=== PATIENT | female | born 1965 | race African-American/Black ===

== ENCOUNTER 2017-12-21 13:43 | Inpatient (IN) | payer OTHER, MEDICAID ==
[~2017-12-21] VITALS: Ht 152.4 cm; Wt 119.3 kg
[2017-12-21 14:12] LABS: BASOPHILS % 0.8 % (0.0-2.0); EOSINOPHILS % 2.8 % (0.0-5.0); HEMATOCRIT. 44.9 % (36.0-48.0); HEMOGLOBIN. 15.2 g/dL (12.0-16.0); LYMPHOCYTES % 34.2 % (20.0-50.0); MEAN CORPUSCULAR HEMOGLOBIN 30.7 pg (28.0-32.0); MEAN CORPUSCULAR VOLUME 90.5 fL (81.0-99.0); MEAN PLATELET VOLUME 7.2 fl (7.4-10.4); MONOCYTES % 8.8 % (2.0-8.0); NEUTROPHILS % 53.4 % (40.0-76.0); PLATELET 402 x1000/uL (130-400); RED BLOOD CELL COUNT 4.96 mill/uL (4.2-5.4); RED CELL DISTRIBUTION WIDTH 13.4 % (11.6-14.6)
[2017-12-21 14:15] LABS: CHLORIDE 106 mEq/L (98-107)
[2017-12-21 14:16] LABS: PROTHROMBIN TIME 10.5 sec (9.4-11.6)
[2017-12-21] MEDS ORDERED: ONDANSETRON HCL 4MG/2ML VIAL IV STA (14:38)
[2017-12-21] MEDS ORDERED: ASPIRIN 81MG TABLET PO STA (14:38)
[2017-12-21] MEDS ORDERED: IPRATROPIUM/ALBUTEROL 0.5-3(2.5)MG/3ML NEB INH PRN (18:30)
[2017-12-21] MEDS ORDERED: DIPHENHYDRAMINE 50MG/ML VIAL IV PRN (18:30)
[2017-12-21] MEDS ORDERED: MAGNESIUM/ALUMINUM HYDROXIDE/SIMETHICONE 30ML UDC PO PRN (18:30)
[2017-12-21] MEDS ORDERED: ENOXAPARIN 40MG/0.4ML SYR SUBCUT SCH (18:30)
[2017-12-21] MEDS ORDERED: ACETAMINOPHEN 325MG TABLET PO PRN (18:30)
[2017-12-21] MEDS ORDERED: MAGNESIUM HYDROXIDE 400MG/5ML 30ML UDC PO PRN (18:30)
[2017-12-21] MEDS ORDERED: CLONIDINE 0.1MG TABLET PO PRN (18:30)
[2017-12-21] MEDS ORDERED: ZOLPIDEM TARTRATE 5MG TABLET PO PRN (18:30)
[2017-12-21] MEDS ORDERED: ONDANSETRON HCL 4MG/2ML VIAL IV PRN (18:30)
[2017-12-21 19:41] LABS: *AMPHETAMINES SCREEN URINE NEGATIVE (NEGATIVE); *BARBITURATES SCREEN URINE NEGATIVE (NEGATIVE); *BENZODIAZEPINES SCREEN URINE NEGATIVE (NEGATIVE); *COCAINE SCREEN URINE NEGATIVE (NEGATIVE); METHADONE URINE SCREEN NEGATIVE (NEGATIVE); OPIATES URINE SCREEN NEGATIVE (NEGATIVE)
[2017-12-21 19:42] LABS: CANNABINOID URINE SCREEN NEGATIVE (NEGATIVE); PHENCYCLIDINE URINE SCREEN NEGATIVE (NEGATIVE)
[2017-12-21] MEDS: SODIUM CHLORIDE 0.9% INJ 3ML FLUSH IVF SCH (22:00)
[2017-12-21 22:15] VITALS: BP 153/90
[2017-12-21 22:18] VITALS: BP 158/95
[2017-12-21] MEDS ORDERED: REGADENOSON 0.4 MG/5 ML IV NR (22:30)
[2017-12-21] MEDS ORDERED: DILT240C3 PO (23:12)
[2017-12-21] MEDS ORDERED: ASPI-1159 PO (23:13)
[2017-12-21] MEDS ORDERED: CHOL500010 PO (23:14)
[2017-12-21] MEDS ORDERED: LORA1TAB PO (23:15)
[2017-12-21] MEDS ORDERED: OXYB5TAB11 PO (23:15)
[2017-12-21] MEDS ORDERED: TEMA15CA PO (23:16)
[2017-12-22] VITALS: BP 136/75
[2017-12-22 04:00] VITALS: BP 120/77
[2017-12-22] MEDS: OXYBUTYNIN CHLORIDE 5MG TABLET PO SCH ×2 (06:00→15:22)
[2017-12-22] MEDS: SODIUM CHLORIDE 0.9% INJ 3ML FLUSH IVF SCH ×2 (06:40→14:00)
[2017-12-22 07:40] VITALS: BP 129/81
[2017-12-22 08:06] LABS: HDL CHOLESTEROL 58 mg/dL (40-59); LDL CHOLESTEROL 88 mg/dL (5-100)
[2017-12-22] MEDS ORDERED: ASPIRIN 81MG EC TABLET PO SCH (09:00)
[2017-12-22] MEDS ORDERED: ENOXAPARIN 40MG/0.4ML SYR SUBCUT SCH (09:00)
[2017-12-22] MEDS ORDERED: DILTIAZEM HCL 300MG CAPSULE SR 24HR PO SCH (09:00)
[2017-12-22] MEDS ORDERED: POTASSIUM CHLORIDE 20MEQ TABLET SR PO ONE (10:45)
[2017-12-22] MEDS ORDERED: POTASSIUM CHLORIDE 20MEQ TABLET SR PO NR (10:45)
[2017-12-22 12:05] VITALS: BP 146/89
[2017-12-22 15:52] VITALS: BP 138/88
[2017-12-22 17:44] VITALS: BP 138/88
== END 2017-12-22 18:53 | disposition home or self-care (01) | DRG 313 ==
LOC: ER 15:00 → 5WST 20:33 → ENRESERV 20:58 → 5WST 12-22 01:24
PROVIDERS: ADMIT Internal Medicine; ATTEND Internal Medicine
DX: R07.89 Other chest pain (principal); E66.01 Morbid (severe) obesity due to excess calories; I11.9 Hypertensive heart disease without heart failure; Z68.43 Body mass index [BMI] 50.0-59.9, adult; G47.30 Sleep apnea, unspecified; Z83.3 Family history of diabetes mellitus; Z87.440 Personal history of urinary (tract) infections; Z79.899 Other long term (current) drug therapy; Z90.49 Acquired absence of other specified parts of digestive tract; Z79.82 Long term (current) use of aspirin
CPT/HCPCS: 36415; 71045; 78452; 80053; 80061; 80305; 83880; 84443; 84484; 85025; 85379; 85610; 93005; 93017; 93970; 99285; A9500; J1650

== ENCOUNTER 2020-11-11 11:00 | Emergency (ER) | payer MEDICAID, OTHER ==
[~2020-11-11] VITALS: Ht 152.4 cm; Wt 84.0 kg
[~2020-11-11 11:00] MED LIST: ASPI-1497 PO; CHOL500010 PO; DILT240C94 PO; LORA1TAB PO; OXYB5TAB16 PO; TEMA15CA PO
[2020-11-11 11:43] LABS: CLARITY URINE CLOUDY (CLEAR); COLOR URINE YELLOW (YELLOW); KETONES URINE TRACE (NEGATIVE); LEUKOCYTE ESTERASE URINE 3+ (NEGATIVE); NITRITE URINE NEGATIVE (NEGATIVE); OCCULT BLOOD URINE NEGATIVE (NEGATIVE); PH URINE 7.5 (4.5-8.0); PROTEIN URINE TRACE (NEGATIVE); SPECIFIC GRAVITY URINE 1.023 (1.005-1.030)
[2020-11-11 11:43] LABS: EOSINOPHILS % 2.7 % (0.0-5.0); HEMATOCRIT. 33.2 % (36.0-48.0); HEMOGLOBIN. 10.7 g/dL (12.0-16.0); LYMPHOCYTES % 34.5 % (20.0-50.0); MEAN CORPUSCULAR HEMOGLOBIN 25.8 pg (28.0-32.0); MEAN CORPUSCULAR VOLUME 79.8 fL (81.0-99.0); MEAN PLATELET VOLUME 7.1 fl (7.4-10.4); MONOCYTES % 13.2 % (2.0-8.0); NEUTROPHILS % 48.6 % (40.0-76.0); PLATELET 419 x1000/uL (130-400); RED BLOOD CELL COUNT 4.17 mill/uL (4.2-5.4); RED CELL DISTRIBUTION WIDTH 16.1 % (11.6-14.6)
[2020-11-11 11:56] LABS: CHLORIDE 109 mEq/L (98-107)
[2020-11-11] MEDS ORDERED: NITR-87 MT ×2 (13:44)
[2020-11-11] MEDS ORDERED: SULF1TAB48 MT (13:53)
[2020-11-11] MEDS ORDERED: IOHEXOL-300 100 ML BOTTLE ONE (14:29)
[2020-11-11 14:31] VITALS: BP 128/70
== END 2020-11-11 14:32 | disposition home or self-care (01) ==
LOC: ER 11:11
DX: N30.90 Cystitis, unspecified without hematuria (principal); I10 Essential (primary) hypertension; Z79.82 Long term (current) use of aspirin; Z79.899 Other long term (current) drug therapy; Z90.49 Acquired absence of other specified parts of digestive tract; Z98.890 Other specified postprocedural states
CPT/HCPCS: 36415; 74177; 80053; 81003; 83690; 85025; 93005; 99285; Q9967; Z7610

== ENCOUNTER 2022-07-26 10:19 | Inpatient (IN) | payer OTHER ==
[~2022-07-26] VITALS: Ht 152.4 cm; Wt 92.1 kg
[~2022-07-26 10:19] MED LIST changes: +SULF1TAB48 MT
[2022-07-26 13:01] LABS: CHLORIDE 108 mEq/L (98-107)
[2022-07-26 13:02] LABS: BASOPHILS % 0.4 % (0.0-2.0); EOSINOPHILS % 1.4 % (0.0-5.0); HEMATOCRIT. 35.5 % (36.0-48.0); HEMOGLOBIN. 10.8 g/dL (12.0-16.0); LYMPHOCYTES % 18.1 % (20.0-50.0); MEAN CORPUSCULAR HEMOGLOBIN 22.3 pg (28.0-32.0); MEAN CORPUSCULAR VOLUME 73.6 fL (81.0-99.0); MEAN PLATELET VOLUME 7.3 fl (7.4-10.4); MONOCYTES % 6.8 % (2.0-8.0); NEUTROPHILS % 73.3 % (40.0-76.0); PLATELET 451 x1000/uL (130-400); RED BLOOD CELL COUNT 4.83 mill/uL (4.2-5.4); RED CELL DISTRIBUTION WIDTH 20.5 % (11.6-14.6)
[2022-07-26] MEDS ORDERED: ASPIRIN 81MG TABLET PO ONE (15:45)
[2022-07-26] MEDS ORDERED: NITROGLYCERIN 0.4MG TABLET SL SL PRN ×2 (15:45→18:30)
[2022-07-26 16:40] LABS: D-DIMER 0.49 mg/L FEU (<0.50); INR 0.9; PARTIAL THROMBOPLASTIN TIME 24.8 sec (23.4-31.0); PROTHROMBIN TIME 10.2 sec (9.6-11.0)
[2022-07-26] MEDS ORDERED: GUAIFENESIN 200MG/10ML SUGAR FREE UDC PO PRN (18:30)
[2022-07-26] MEDS ORDERED: IPRATROPIUM/ALBUTEROL 0.5-3(2.5)MG/3ML NEB NEB PRN (18:30)
[2022-07-26] MEDS ORDERED: ZOLPIDEM TARTRATE 5MG TABLET PO PRN (18:30)
[2022-07-26] MEDS ORDERED: DOCUSATE SODIUM 100MG CAPSULE PO PRN (18:30)
[2022-07-26] MEDS ORDERED: CLONIDINE 0.1MG TABLET PO PRN (18:30)
[2022-07-26] MEDS ORDERED: MAGNESIUM/ALUMINUM HYDROXIDE/SIMETHICONE 30ML UDC PO PRN (18:30)
[2022-07-26] MEDS ORDERED: ACETAMINOPHEN 325MG TABLET PO PRN ×2 (18:30)
[2022-07-26] MEDS ORDERED: KETOROLAC 15MG/ML VIAL IV PRN (18:30)
[2022-07-26] MEDS ORDERED: ONDANSETRON HCL 4MG/2ML INJ IV PRN (18:30)
[2022-07-26 19:36] LABS: VITAMIN B12 SERUM 532 pg/mL (211-911)
[2022-07-26] MEDS ORDERED: ENOXAPARIN 30MG/0.3ML SYR SUBCUT SCH (21:00)
[2022-07-26] MEDS: FAMOTIDINE 20MG TABLET PO SCH (21:44)
[2022-07-26 23:20] VITALS: BP 131/84
[2022-07-27] VITALS: BP 131/84
[2022-07-27] MEDS ORDERED: DILT300T10 MT (00:17)
[2022-07-27 04:00] VITALS: BP 118/56
[2022-07-27 07:21] LABS: BASOPHILS % 0.5 % (0.0-2.0); EOSINOPHILS % 1.5 % (0.0-5.0); HEMATOCRIT. 27.5 % (36.0-48.0); HEMOGLOBIN. 8.8 g/dL (12.0-16.0); MEAN CORPUSCULAR HEMOGLOBIN 22.5 pg (28.0-32.0); MEAN CORPUSCULAR VOLUME 70.1 fL (81.0-99.0); MEAN PLATELET VOLUME 7.2 fl (7.4-10.4); MONOCYTES % 12.8 % (2.0-8.0); NEUTROPHILS % 57.2 % (40.0-76.0); PLATELET 428 x1000/uL (130-400); RED BLOOD CELL COUNT 3.93 mill/uL (4.2-5.4); RED CELL DISTRIBUTION WIDTH 20.4 % (11.6-14.6)
[2022-07-27] MEDS ORDERED: GEMTESA PO (07:52)
[2022-07-27 08:00] VITALS: BP 113/62
[2022-07-27] MEDS ORDERED: AMLODIPINE 10MG TABLET PO SCH (09:00)
[2022-07-27] MEDS ORDERED: ASPIRIN 325MG EC TABLET PO SCH (09:00)
[2022-07-27] MEDS: FAMOTIDINE 20MG TABLET PO SCH ×2 (09:32→20:32)
[2022-07-27 09:35] LABS: CREATINE KINASE 61 IU/L (26-192); CREATINE KINASE MB FRACTION < 1.0 ng/mL (0.5-3.6)
[2022-07-27 10:19] LABS: CHLORIDE 105 mEq/L (98-107)
[2022-07-27 11:04] LABS: PHOSPHORUS 3.5 mg/dL (2.5-4.9)
[2022-07-27] MEDS: DILTIAZEM HCL 300MG CAPSULE SR 24HR PO SCH (11:06)
[2022-07-27] MEDS ORDERED: METOPROLOL TARTRATE 5MG/5ML VIAL IV PRN (11:45)
[2022-07-27] MEDS: ASPIRIN 81MG TABLET PO SCH (11:50)
[2022-07-27 12:00] VITALS: BP 158/86
[2022-07-27 16:00] VITALS: BP 136/80
[2022-07-27 20:00] VITALS: BP 150/57
[2022-07-28] VITALS: BP 131/88
[2022-07-28 04:00] VITALS: BP 130/80
[2022-07-28 08:00] VITALS: BP 148/85
[2022-07-28] MEDS: DILTIAZEM HCL 300MG CAPSULE SR 24HR PO SCH (08:57)
[2022-07-28] MEDS: FAMOTIDINE 20MG TABLET PO SCH ×2 (08:57→21:07)
[2022-07-28] MEDS: ASPIRIN 81MG TABLET PO SCH (08:57)
[2022-07-28] MEDS: METOPROLOL TARTRATE 5MG/5ML VIAL IV PRN ×4 (10:33→11:05)
[2022-07-28] MEDS ORDERED: IOHEXOL-350 100 ML BOTTLE ONE (11:29)
[2022-07-28 11:33] LABS: HEMATOCRIT 27.6 % (36.0-48.0); HEMOGLOBIN 8.5 g/dL (12.0-16.0); PLATELET 455 x1000/uL (130-400); RED BLOOD CELL COUNT 3.89 mill/uL (4.2-5.4); RED CELL DISTRIBUTION WIDTH 20.3 % (11.6-14.6)
[2022-07-28 12:00] VITALS: BP 129/83
[2022-07-28] MEDS ORDERED: NITROGLYCERIN SPRAY/4.9GM CAN TL ONE (12:15)
[2022-07-28 16:00] VITALS: BP 119/76
[2022-07-28 20:00] VITALS: BP 129/74
[2022-07-29] VITALS: BP 143/79
[2022-07-29 00:24] LABS: *AMPHETAMINES SCREEN URINE NEGATIVE (NEGATIVE); *BARBITURATES SCREEN URINE NEGATIVE (NEGATIVE); *BENZODIAZEPINES SCREEN URINE NEGATIVE (NEGATIVE); *COCAINE SCREEN URINE NEGATIVE (NEGATIVE); CANNABINOID URINE SCREEN NEGATIVE (NEGATIVE); METHADONE URINE SCREEN NEGATIVE (NEGATIVE); OPIATES URINE SCREEN NEGATIVE (NEGATIVE); PHENCYCLIDINE URINE SCREEN NEGATIVE (NEGATIVE)
[2022-07-29 04:00] VITALS: BP 122/79
[2022-07-29 08:00] VITALS: BP 119/57
[2022-07-29] MEDS: FAMOTIDINE 20MG TABLET PO SCH (09:00)
[2022-07-29] MEDS: DILTIAZEM HCL 300MG CAPSULE SR 24HR PO SCH (09:37)
[2022-07-29] MEDS: PANTOPRAZOLE SODIUM 40 MG/VIAL IV SCH ×2 (11:28→17:55)
[2022-07-29 12:00] VITALS: BP 142/84
[2022-07-29 13:59] LABS: HEMATOCRIT 29.1 % (36.0-48.0); MEAN CORPUSCULAR VOLUME 71.1 fL (81.0-99.0); PLATELET 493 x1000/uL (130-400); RED BLOOD CELL COUNT 4.09 mill/uL (4.2-5.4); RED CELL DISTRIBUTION WIDTH 20.7 % (11.6-14.6)
[2022-07-29 16:00] VITALS: BP 153/67
[2022-07-29 16:18] LABS: HEMATOCRIT 29.3 % (36.0-48.0)
[2022-07-29 19:35] LABS: HEPATITIS B SURFACE ANTIGEN NEGATIVE
[2022-07-29 20:00] VITALS: BP 133/69
[2022-07-29] MEDS ORDERED: MAGNESIUM/ALUMINUM HYDROXIDE/SIMETHICONE 30ML UDC PO PRN (23:00)
[2022-07-29] MEDS ORDERED: LORAZEPAM 2MG/ML CPJ IV PRN (23:15)
[2022-07-30] VITALS: BP 130/58
[2022-07-30 03:54] VITALS: BP 133/61
[2022-07-30] MEDS ORDERED: OMEPRAZOLE 20MG CAPSULE EXTENDED RELEASE PO SCH (07:10)
[2022-07-30 07:16] LABS: BASOPHILS % 1.1 % (0.0-2.0); EOSINOPHILS % 1.2 % (0.0-5.0); HEMATOCRIT. 28.5 % (36.0-48.0); HEMOGLOBIN. 8.9 g/dL (12.0-16.0); LYMPHOCYTES % 10.8 % (20.0-50.0); MEAN CORPUSCULAR HEMOGLOBIN 21.8 pg (28.0-32.0); MEAN CORPUSCULAR VOLUME 70.1 fL (81.0-99.0); MEAN PLATELET VOLUME 7.2 fl (7.4-10.4); MONOCYTES % 8.2 % (2.0-8.0); NEUTROPHILS % 78.7 % (40.0-76.0); PLATELET 480 x1000/uL (130-400); RED BLOOD CELL COUNT 4.06 mill/uL (4.2-5.4)
[2022-07-30 08:00] VITALS: BP 132/65
[2022-07-30 08:17] LABS: FOLIC ACID (FOLATE) SERUM 3.1 ng/mL (>5.38)
[2022-07-30] MEDS: DILTIAZEM HCL 300MG CAPSULE SR 24HR PO SCH (08:34)
[2022-07-30] MEDS ORDERED: THIAMINE HCL 100MG TABLET PO SCH (09:00)
[2022-07-30] MEDS ORDERED: DOCUSATE SODIUM 100MG CAPSULE PO SCH (09:00)
[2022-07-30] MEDS ORDERED: MULTIVITAMINS,THER W-MINERALS TABLET PO SCH (09:00)
[2022-07-30 09:10] LABS: CHLORIDE 108 mEq/L (98-107)
[2022-07-30 09:33] LABS: TOTAL IRON BINDING CAPACITY 415 ug/dL (250-450)
[2022-07-30] MEDS ORDERED: FERR325T6 MT (10:04)
[2022-07-30] MEDS ORDERED: PROT40 MT (10:04)
[2022-07-30] MEDS ORDERED: SUCR1TAB30 MT (10:04)
[2022-07-30] MEDS ORDERED: SENN-257 MT (10:04)
[2022-07-30 12:00] VITALS: BP 130/62
[2022-07-30 12:17] VITALS: BP 130/62
== END 2022-07-30 15:49 | disposition home or self-care (01) | DRG 313 ==
LOC: ER 10:19 → 8WST 17:29 → EDBEDREQ 17:45 → EDBEDREQTM 17:45
PROVIDERS: ADMIT Internal Medicine; ATTEND Internal Medicine
DX: R07.89 Other chest pain (principal); E87.5 Hyperkalemia; I11.9 Hypertensive heart disease without heart failure; D50.9 Iron deficiency anemia, unspecified; E66.9 Obesity, unspecified; G62.9 Polyneuropathy, unspecified; G90.8 Other disorders of autonomic nervous system; Z20.822 Contact with and (suspected) exposure to COVID-19; K59.00 Constipation, unspecified; K76.0 Fatty (change of) liver, not elsewhere classified; Z79.82 Long term (current) use of aspirin; Z82.49 Family history of ischemic heart disease and other diseases of the circulatory system; Z87.440 Personal history of urinary (tract) infections; Z90.49 Acquired absence of other specified parts of digestive tract; Z98.84 Bariatric surgery status; Z98.891 History of uterine scar from previous surgery; Z68.39 Body mass index [BMI] 39.0-39.9, adult; Z79.899 Other long term (current) drug therapy
CPT/HCPCS: 36415; 71045; 75571; 76700; 80048; 80053; 80061; 80305; 80320; 82270; 82550; 82553; 82607; 82728; 82746; 83036; 83540; 83550; 83735; 83880; 84100; 84439; 84443; 84484; 85014; 85018; 85025; 85027; 85044; 85379; 86705; 86709; 86803; 87340; 87426; 93005; 93306; 93970; 99285; C9113; J1650; J3490; Q9967; G0480